=== PATIENT | male | born 2005 | race Caucasian/White ===

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

== ENCOUNTER 2023-09-10 15:12 | Emergency (ER) | payer MEDICAID, SELFPAY ==
[2023-09-10] VITALS (20 sets, daily range): BP systolic 82–153; BP diastolic 46–77; PULSE 50–70; RESP 16–18; TEMP 37.2; O2SAT 96–100
--- NOTE | 2023-09-10 15:08 | W.ED.GENAD ---
HPI General Mode of arrival: EMS. Date/Time Provider Initiated Documentation: 09/10/23 15:28. Limitations to Documentation: no limitations. Information obtained by: patient, family (father) and EMS. HPI Narrative: Time seen was on arrival in bed 4. The patient is a 18-year-old with history of opiate use disorder who never used IV drugs and who is currently on methadone. The patient does have a history of migraines. Today he presents with 4 hours of a headache. He said it came on very quickly but did not reach maximal intensity for 2 to 3 hours. The patient states that the headache is bitemporal and throbbing it is aggravated by light and feels different than his usual migraines. He has vomited 3 times and is complaining of several days of nausea but no abdominal pain. His father tells me that he has had his gallbladder out but that the patient has never had any abdominal surgeries. They called EMS and on arrival he was pale and shaking but was not febrile in the field. An IV was established and the patient received 4 mg of Zofran and 1 g of IV acetaminophen which helped his headache which went from an 8 at maximum to 2. The patient has not been using any opiates for 2 months and has not had any change in his methadone dose. He does tell me that he has had similar symptoms when he was withdrawing. Blood sugar in the field was within normal limits. The patient states that he thought he saw small amount of blood with his third and last episode of emesis. He denies any stiff neck or rashes. He has not had a subjective fever at home but did have chills. He denies any diarrhea. His last bowel movement was this morning and was normal. His last meal was an omelette which he had 2 hours before the onset of his symptoms. No other family members have been sick. He has not had any foreign travel or any ingested any unusual foods. He denies any rashes. He denies any numbness tingling or weakness. He denies any dysuria or penile discharge. The patient denies any blurry vision. He denies earache, sore throat, rhinorrhea, chest pain, shortness of breath, cough or sick contacts. No dysuria. Related Data Home Medications Medication Instructions Recorded Confirmed amoxicillin 875 mg-potassium 1 tab PO BID #14 tabs 09/26/21 clavulanate 125 mg tablet Previous Rx's Medication Instructions Recorded amoxicillin 875 mg-potassium 1 tab PO BID #14 tabs 09/26/21 clavulanate 125 mg tablet Allergies Allergy/AdvReac Type Severity Reaction Status Date / Time No Known Allergies Allergy Unverified 06/13/20 19:12 General Stated Complaint: Headache ALEXANDRA: 4 Review of Systems Narrative: see hpi Exam Const General: cooperative, healthy appearing, comfortable, no acute distress, well developed and well hydrated Nutritional Appearance: average body habitus and well nourished Orientation: alert, awake and oriented x3 HENMT Head: normal to inspection, normocephalic and atraumatic Ears: hearing grossly normal bilaterally, external ears normal and TM's normal bilaterally General nose exam: external nose normal, nares normal and no nasal discharge Face and sinus: normal facial exam, sinuses nontender and face symmetric Mouth: oral mucosae normal, lip normal, tongue normal, oropharynx normal and other (Normal phonation. The patient is handling secretions.) Throat: posterior oropharynx normal and uvula midline Eyes General: appearance normal, both eyes and all related structures Alignment and Position: alignment normal Periorbital: periorbital findings normal Eyelids: eyelids normal Conjunctivae: conjunctivae normal Sclera: sclerae normal Cornea: corneas normal Pupils: PERRL EOM: EOM intact bilaterally and No nystagmus Other: Discs are sharp. Extraocular muscles are intact. No significant photophobia Neck Neck: normal visual inspection, full ROM, no lymphadenopathy, no meningeal signs, trachea midline and supple Lymphatic: no lymphadenopathy noted Chest Chest: normal inspection of the chest Resp Effort & Inspection: normal respiratory effort, able to speak in complete sentences, no audible wheezes, no nasal flaring, no respiratory distress, no retractions, no stridor, not tachypneic, no tracheal deviation, no use of accessory muscles, No prolonged expiratory phase and other (Normal inspiratory to expiratory ratio.) Auscultation: clear to auscultation bilaterally, no rales, no rhonchi, no wheezes and no rubs Tactile Fremitus: tactile fremitus absent Cardio Jugular venous pressure: no JVD Palpation: normal PMI Rate: regular rate Rhythm: regular rhythm Heart Sounds: S1 normal, S2 normal, no gallops, no murmurs and no rubs GI Inspection: normal to inspection and non-distended Palpation: soft, no hepatosplenomegaly, no guarding and nontender Percussion: normal to percussion Auscultation: normal bowel sounds General: No CVA tenderness Back/Spine/Pelvis Back: no CVA tenderness and No back tenderness Cervical Spine: normal cervical lordosis, cervical ROM normal, No cervical muscular tenderness, No pain with cervical ROM, No cervical spinal tenderness and No step off deformity Thoracic/Lumbar Spine: thoracic and lumbar spine normal to inspection, No thoracic spinal tenderness and No lumbar spinal tenderness Pelvis: no pain with anterior-posterior compression and no pain with lateral compression Skin General skin exam: no rashes or lesions noted, turgor normal, no petechiae, no purpura and other (Skin is normal for ethnicity.) Lesions: no lesions Rashes: no rashes Trauma: no lacerations or abrasions Neuro General: patient alert, patient awake, patient oriented x3, moves all extremities, no meningeal signs, no focal motor deficits and CN's II-XI intact bilaterally Cranial Nerves: CN's II-XI intact bilaterally, PERRL, accommodation normal, EOM intact bilaterally, no nystagmus, facial strength normal, tongue midline, hearing normal and no nystagmus Cognition: normal cognition Speech: speech normal Gait: normal gait Motor: muscle tone normal throughout and strength 5/5 throughout Sensory Exam: no sensory deficits noted Extrem General: normal to inspection, full ROM, capillary refill normal, no clubbing, cyanosis or edema and no calf tenderness Psych Appearance: grossly normal Affect: normal affect Attitude: cooperative Thought Process: normal Thought Content: normal Insight: insight good Judgment: judgment good Other: The patient appears to have capacity make medical decisions. Course 5:09 PM I have reviewed the patient's lab work. He feels improved. He is keeping down p.o. I will discharge him home with outpatient follow-up. I have advised the patient of his elevated AST and his mild anemia. He did not tell me that he does occasionally have blood in his stool. I have advised him to return if he develops any black stools bloody stools or vomits any more blood. I have told him to avoid alcohol and acetaminophen. We will arrange to have primary care follow-up with him as well as general surgery for repeat liver function and possible endoscopy. I do not think he has an ulcer since he is not having abdominal pain. I will discharge him with p.o. Zofran and advised him to take [id number] Pepcid. The patient voiced understanding agreement with the discharge plan. All his questions and concerns were addressed prior to discharge Medical Decision Making Patient is a 18-year-old who presents with headache and nausea and vomiting but no significant abdominal pain. The patient does have a history of opiate use disorder but has never used IV drugs because she is afraid of needles. He tells me he noted a small amount of blood in his emesis but appears hemodynamically stable and has not had any significant hematemesis. My plan is to obtain IV access and give him IV fluids because he appears dehydrated. We will give him antiemetics as needed. I do not see any indication for CT imaging of his brain or abdomen since he has a normal neurologic exam, and has no signs of meningitis or encephalitis, and no abdominal pain just nausea. The patient certainly could have a viral infection and we will check him for flu COVID and RSV. Symptoms could be secondary to withdrawal from opiates and I will check a urine drug screen and urinalysis to determine his level of dehydration. I do not think that she has an ulcer and probably just sustained mild trauma from retching. I will check CBC for anemia and leukocytosis as well as thrombocytopenia. I will check his electrolytes for evidence of dehydration and renal function. I will check his liver function test for evidence of hepatitis and a lipase for pancreatitis. We will monitor him in the department and I will rehydrate him with IV fluids. If he remains stable I will likely discharge him home. If he develops abdominal pain I will consider imaging. Differential Diagnosis Differential Diagnosis: viral uri,gastroenteritis, dehydration, opiate withdrawal Medical Records Medical records reviewed: Yes I reviewed the patient's medical records. Lab Data Lab results reviewed: Yes I reviewed the patient's lab results. Quality:SDOH Health Related Social Needs: Health related social needs details the patient has a h/o OUD Health related social needs details: the patient has a h/o OUD [facility] All Active Problems (Updated 09/10/23 @ 17:24 by Ursula Briceno MD) Headache (Acute) Mild nausea and vomiting (Acute) Hematemesis of unknown cause (Acute) Medical History No significant past medical history Surgical History No significant past surgical history Social History Smoking/Tobacco Use Status: Current every day Smoking risk assessment performed?: Yes Alcohol Intake: current Alcohol Intake frequency: a few times a month Drug use: Occasionally Substance use type: marijuana Housing: apartment Do you feel safe at home: Yes Do you feel safe in your relationship?: Yes Discharge Plan Disposition Patient Disposition: Home Discharge Details Clinical Impression: Hematemesis of unknown cause, Mild nausea and vomiting, Headache Primary Care Provider: Paul Minor ED Provider: Ursula Briceno Home Meds and New Rx's Prescriptions: No Action amoxicillin-pot clavulanate 875-125 mg tablet 1 tab PO BID Qty: 14 0RF Discharge Instructions Instructions: Gastrointestinal Bleeding (ED), Acute Nausea and Vomiting (ED), Anemia (ED), General Headache (ED), Hematemesis (ED) Additional Instructions: 1. You will be contacted by a primary care provider as well as general surgery. You should have your anemia and liver function test rechecked. General surgery will contact you for possible upper or lower endoscopy. 2. Avoid alcohol and acetaminophen. You may take acetaminophen for pain which does not cause internal bleeding, but you should start with you may take low-dose ibuprofen as needed for pain, because this does not affect your liver.. Do not take more than 600 mg at a time and if you develop abdominal pain you should stop ibuprofen. 3. Return here if you develop any new or worrisome symptoms including stiff neck high fever dizziness or large amounts of blood in the stool or vomit. 4. [id number] Pepcid and take as directed until you follow-up with primary care and general surgery. 5. Return here for any new or worrisome symptoms. 6. Take Zofran as needed for nausea and vomiting. We recommend that you drink electrolyte solution such as Pedialyte and or Gatorade as needed to avoid dehydration. Discharge Data Discharge Date/Time-TO BE ENTERED AT DEPARTURE: 09/10/23 17:29 Discharge Physician: Ursula Briceno
[2023-09-10] MEDS: Normal Saline 1,000 ML 1000 ML IV (15:42)
[2023-09-10 15:47] LABS: Abs Immature Grans 0.02 10^3/uL (0.0-0.06); Absolute Basophil Count 0.04 10^3/uL (0.0-0.2); Absolute Eosinophil Count 0.27 10^3/uL (0.0-0.7); Absolute Lymphocyte Count 2.27 10^3/uL (1.2-3.4); Absolute Monocyte Count 0.52 10^3/uL (0.1-0.8); Absolute Neutrophil Count 5.52 10^3/uL (1.2-6.7); Basophils % 0.5; Eosinophils % 3.1; HCT 35.5 % (40.0-50.0); HGB 12.4 g/dL (13.5-17.5); Immature Grans % 0.2; Lymphocytes % 26.3; MCHC 34.9 % (32.0-36.0); MCV 83 fL (80-95); MPV 9.3 fL (8.0-11.0); Neutrophils % 63.9; Platelet Count 231 10^3/uL (130-400); RBC 4.28 10^6/uL (4.36-5.78); RDW 12.8 % (11.8-14.1); RDW-SD 38.8 fL; WBC 8.64 10^3/uL (4.4-10.8)
[2023-09-10 15:59] LABS: Lipase 66 U/L (16-77)
[2023-09-10 16:03] LABS: ALT 63 U/L (16-63); AST 45 U/L (15-37); Albumin 3.7 g/dL (3.4-5.0); Alkaline Phosphatase 76 U/L (46-116); Anion Gap 5.4 mmol/L (3-11); BUN 13 mg/dL (7-18); Bilirubin, Total 0.4 mg/dL (0.2-1.0); CO2 32.6 mmol/L (21.0-32.0); CREATININE 0.9 mg/dL (0.70-1.30); Calcium 9.6 mg/dL (8.5-10.1); Chloride 104 mmol/L (98-107); Estimated GFR 125.39 (mL/min/1.73m2); Glucose 89 mg/dL (74-106); Potassium 3.7 mmol/L (3.5-5.1); Sodium 142 mmol/L (136-145); Total Protein 6.9 g/dL (6.4-8.2)
[2023-09-10 16:15] LABS: Bilirubin Negative (Negative); Blood Negative (Negative); Clarity Turbid (Clear); Glucose Negative (Negative); Ketones Negative (Negative); Leukocyte Esterase Negative (Negative); Nitrite Negative (Negative); Urobilinogen 0.2 mg/dL (Up to 0.2)
[2023-09-10 16:24] LABS: COVID-19 PCR Negative (Negative); Influenza A PCR Negative (Negative); Influenza B PCR Negative (Negative); RSV PCR Negative (Negative)
[2023-09-10 16:26] LABS: Source Nasopharynx
[2023-09-10 16:35] LABS: Procalcitonin < 0.1 ng/mL
[2023-09-10 16:42] LABS: *AMPHETAMINES SCREEN URINE Negative (Negative); *BARBITURATES SCREEN URINE Negative (Negative); *BENZODIAZEPINES SCREEN URINE Negative (Negative); Cannabinoids THC Positive (Negative); Cocaine Screen,Urine Negative (Negative); METHADONE URINE SCREEN Positive (Negative); OPIATES URINE SCREEN Negative (Negative)
[2023-09-10 16:44] LABS: Tricyclic Antidepressants Negative (Negative)
--- NOTE | 2023-09-10 17:14 | NUR.NOTE ---
Referral given to Care Management to PCP for elevation of AST within 2 weeks. [facility] in stool, for first available appt. Nursing Note:
== END 2023-09-10 17:29 | disposition home or self-care (01) ==
PROVIDERS: Emergency Provider Emergency Medicine Emergency Medical Services; PCP Family Medicine
DX: R51.9 Headache, unspecified (principal); R11.2 Nausea with vomiting, unspecified; K92.0 Hematemesis; R74.01 Elevation of levels of liver transaminase levels; D64.9 Anemia, unspecified; F11.20 Opioid dependence, uncomplicated
CPT/HCPCS: 80053; 80307; 83690; 84145; 87637; 96360; 99283; 81003; 83605; 85025

== ENCOUNTER 2023-12-17 11:22 | Emergency (ER) | payer MEDICAID, SELFPAY ==
[2023-12-17 11:25] VITALS: BP 157/93; PULSE 110; RESP 20; TEMP 36.6; O2SAT 96
[2023-12-17 11:28] VITALS: BP 157/93; PULSE 110; RESP 20; TEMP 36.6; O2SAT 96
--- NOTE | 2023-12-17 11:51 | ED.GENADUL_ITS ---
Discharge Plan Disposition Patient Disposition: Home Condition: Stable Discharge Details Clinical Impression: Vomiting, Hypomagnesemia Primary Care Provider: Paul Minor ED Provider: Isma Brown Home Meds and New Rx's Prescriptions: New ondansetron 4 mg tablet,disintegrating 4 mg PO Q8H PRN (Reason: nausea and vomiting) Qty: 30 0RF No Action amoxicillin-pot clavulanate 875-125 mg tablet 1 tab PO BID Qty: 14 0RF Discharge Instructions Instructions: Acute Nausea and Vomiting (ED) Additional Instructions: Drink clear liquids and advance diet slowly as tolerated. Take Zofran as needed for nausea. Follow-up with your PCP for further evaluation if you have persistent vomiting. Return to the emergency department with severe pain or not tolerating anything by mouth. Discharge Data Discharge Date/Time-TO BE ENTERED AT DEPARTURE: 12/17/23 14:29 HPI General Date/Time Provider Initiated Documentation: 12/17/23 11:30 . Limitations to Documentation: no limitations . Information obtained by: patient . HPI Narrative: 18-year-old gentleman without significant past medical history presents for ev aluation of vomiting. He reports that for the last 3 days he has been vomiting. Has some mild epigastric abdominal tenderness, denies any diarrhea. Denies any fever. Reports that he is able to eat but then will have vomiting later. he got some [employer] on the way to the hospital but he threw up after eating it. Related Data Home Medications Medication Instructions Recorded Confirmed amoxicillin 875 mg-potassium 1 tab PO BID #14 tabs 09/26/21 clavulanate 125 mg tablet ondansetron 4 mg disintegrating 4 mg PO Q8H PRN nausea and 12/17/23 tablet vomiting #30 tabs Previous Rx's Medication Instructions Recorded amoxicillin 875 mg-potassium 1 tab PO BID #14 tabs 09/26/21 clavulanate 125 mg tablet ondansetron 4 mg disintegrating 4 mg PO Q8H PRN nausea and 12/17/23 tablet vomiting #30 tabs Allergies Allergy/AdvReac Type Severity Reaction Status Date / Time No Known Allergies Allergy Unverified 06/13/20 19:12 General Stated Complaint: Abd Prob ALEXANDRA: 3 Exam Narrative Exam Narrative: Review of Systems: All systems reviewed & are unremarkable except as noted in HPI and below Well-developed, no acute distress NCAT PERRL, normal conjunctiva Dry mucous membranes RRR, no murmur Unlabored respiratory effort, clear bilaterally Nondistended abdomen , soft, non tender, no focal tenderness Extremities w/o deformity, no cyanosis, no edema No rashes or lesions. no focal neurologic deficits Appropriate mood and affect dry mucous membranes Course Vital Signs Vital signs: Vital Signs Temperature 36.6 C 12/17/23 11:25 Pulse 110 H 12/17/23 11:25 Respiratory Rate 20 12/17/23 11:25 Blood Pressure 157/93 H 12/17/23 11:25 Pulse Oximetry 96 12/17/23 11:25 Temperature 36.6 C 12/17/23 11:28 Temperature Source Tympanic 12/17/23 11:28 Pulse 110 H 12/17/23 11:28 Respiratory Rate 20 12/17/23 11:28 Respiratory Effort Normal, Non-Labored 12/17/23 11:28 Blood Pressure 157/93 H 12/17/23 11:28 Blood Pressure Position Sitting 12/17/23 11:28 Pulse Oximetry 96 12/17/23 11:28 Oxygen Delivery Method Room Air 12/17/23 11:28 Oxygen Flow Rate 0 12/17/23 11:28 Pain Level 5 12/17/23 11:28 Medical Decision Making Emergent evaluation of vomiting. Initial differential includes viral illness, dehydration, pancreatitis. Cyclic vomiting. No abdominal tenderness on exam, so I have a low suspicion for an acute intra-abdominal etiology. Plan for labs, fluid resuscitation and Zofran. Will reassess. Lab work reviewed. Mild hypomagnesemia. IV replacement ordered. No other significant signs of dehydration or electrolyte derangement. After fluid resuscitation, the patient is tolerating p.o. Was provided a few doses of Zofran at discharge and a prescription was also sent to the pharmacy. Return precautions advised. Medical Records Medical records reviewed: Yes I reviewed the patient's medical records. Lab Data Lab results reviewed: Yes I reviewed the patient's lab results. Quality:SDOH Health Related Social Needs: Health related social needs details the patient has a h/o OUD PFSH All Active Problems (Updated 12/17/23 @ 13:03 by Isma Brown MD) Hypomagnesemia (Acute) Vomiting (Acute) Medical History No significant past medical history Surgical History No significant past surgical history Social History Smoking/Tobacco Use Status: Current every day Smoking risk assessment performed?: Yes Alcohol Intake: current Alcohol Intake frequency: a few times a month Drug use: Occasionally Substance use type: marijuana Housing: apartment Do you feel safe at home: Yes Do you feel safe in your relationship?: Yes
[2023-12-17] MEDS: Normal Saline 1,000 ML 1000 ML IV (11:55)
[2023-12-17] MEDS: Ondansetron 4 MG/2 ML VIAL IVP (11:56)
[2023-12-17 11:57] LABS: Abs Immature Grans 0.03 10^3/uL (0.0-0.06); Absolute Basophil Count 0.02 10^3/uL (0.0-0.2); Absolute Eosinophil Count 0.01 10^3/uL (0.0-0.7); Absolute Lymphocyte Count 1.57 10^3/uL (1.2-3.4); Absolute Neutrophil Count 5.86 10^3/uL (1.2-6.7); Basophils % 0.3; Eosinophils % 0.1; HCT 38.5 % (40.0-50.0); HGB 13.4 g/dL (13.5-17.5); Immature Grans % 0.4; Lymphocytes % 20.2; MCH 29.5 pg (27.0-33.0); MCHC 34.8 % (32.0-36.0); MCV 85 fL (80-95); MPV 8.7 fL (8.0-11.0); Monocytes % 3.9; Neutrophils % 75.1; Platelet Count 274 10^3/uL (130-400); RBC 4.54 10^6/uL (4.36-5.78); RDW-SD 36.9 fL; WBC 7.79 10^3/uL (4.4-10.8)
[2023-12-17 12:12] LABS: ALT 41 U/L (16-63); AST 31 U/L (15-37); Albumin 4.1 g/dL (3.4-5.0); Alkaline Phosphatase 113 U/L (46-116); Anion Gap 8.9 mmol/L (3-11); BUN 13 mg/dL (7-18); Bilirubin, Total 0.4 mg/dL (0.2-1.0); CO2 29.1 mmol/L (21.0-32.0); CREATININE 0.9 mg/dL (0.70-1.30); Calcium 9.2 mg/dL (8.5-10.1); Chloride 102 mmol/L (98-107); Estimated GFR 125.39 (mL/min/1.73m2); Glucose 101 mg/dL (74-106); Lipase 18 U/L (16-77); Magnesium 1.7 mg/dL (1.8-2.4); Sodium 140 mmol/L (136-145); Total Protein 7.6 g/dL (6.4-8.2)
[2023-12-17] MEDS: MAGNESIUM SULFATE 2 GM/50 ML BAG IVINF (13:01)
[2023-12-17 14:25] VITALS: BP 153/73; PULSE 60; RESP 18; O2SAT 96
[2023-12-17] MEDS: Ondansetron O.D.T. 4 MG TABEF, 3 TABS/BTL PO (14:28)
== END 2023-12-17 14:29 | disposition home or self-care (01) ==
PROVIDERS: Emergency Provider Emergency Medicine; PCP Family Medicine
DX: R11.2 Nausea with vomiting, unspecified (principal); E83.42 Hypomagnesemia; F17.210 Nicotine dependence, cigarettes, uncomplicated
CPT/HCPCS: 80053; 83690; 96361; 96365; 96375; 99284; 83735; 85025; J2405; J3475

== ENCOUNTER 2024-02-07 15:56 | Emergency (ER) | payer MEDICAID, SELFPAY ==
[2024-02-07 16:10] VITALS: BP 137/64; PULSE 87; RESP 10; TEMP 36.2; O2SAT 97
--- NOTE | 2024-02-07 16:41 | ED.GENADUL_ITS ---
Discharge Plan Disposition Patient Disposition: Home Condition: Stable Discharge Details Clinical Impression: Animal bite of left hand Primary Care Provider: Paul Minor ED Provider: Daysi Lira Home Meds and New Rx's Prescriptions: New amoxicillin-pot clavulanate 875-125 mg tablet 1 tab PO BID 10 Days Qty: 20 0RF No Action methadone [Methadose] 10 mg/mL concentrate 60 mg PO DAILY Discharge Instructions Instructions: Rabies Immune Globulin (Human), Animal Bites ED, Rabies Vaccine CDC Vaccine Information Statement (VIS) Additional Instructions: Please return as instructed on the rabies vaccination sheet. Please keep clean and dry, return sooner for any signs of infection including increased redness streaks drainage or swelling. Please take the antibiotic twice daily with yogurt or a probiotic as prescribed. Follow up with primary care provider in 3-5 days. Return to ED sooner if any worsening or concerns. Referrals: Paul Minor [Primary Care Provider] - 2 days HPI General Mode of arrival: ambulatory . Date/Time Provider Initiated Documentation: 02/07/24 16:14 . Limitations to Documentation: no limitations . Information obtained by: patient, RN notes reviewed and old records reviewed . HPI Narrative: 18-year-old male presents to the ER with a groundhog bite to his left thumb which occurred prior to arrival. Patient reports that the groundhog was not acting like normal groundhog and was slow and sickly looking and he tried to give it a cracker and the groundhog bit him. His last tetanus vaccination was in 2015, he does have a small puncture wound noted to the lateral aspect of his left thumb, bleeding is controlled upon arrival he does have full range of motion distal CMS is intact. No other drug allergies, no significant past medical history, he does take methadone daily. Related Data Home Medications Medication Instructions Recorded Confirmed amoxicillin 875 mg-potassium 1 tab PO BID 10 days #20 tabs 02/07/24 clavulanate 125 mg tablet methadone 10 mg/mL oral 60 mg PO DAILY 02/07/24 02/07/24 concentrate (Methadose) Previous Rx's Medication Instructions Recorded amoxicillin 875 mg-potassium 1 tab PO BID 10 days #20 tabs 02/07/24 clavulanate 125 mg tablet Allergies Allergy/AdvReac Type Severity Reaction Status Date / Time No Known Allergies Allergy Unverified 02/07/24 16:13 General Stated Complaint: AnimalBite ALEXANDRA: 4 Review of Systems All systems reviewed & are unremarkable except as noted in HPI and below ENT Ears, Nose, Mouth, and Throat: Reports system reviewed and no additional complaints, except as documented Gastrointestinal Gastrointestinal: Reports system reviewed and no additional complaints, except as documented Musculoskeletal Musculoskeletal: Reports as per HPI Integumentary/Breasts Skin/Breast: Reports as per HPI and Reports wounds Exam Extrem General: normal to inspection Left upper extremity: hand Details: normal capillary refill, neuromotor exam normal, neurosensory exam normal, normal ROM of fingers, no swelling and puncture wound (Left thumb bite wound); no unusual warmth, no crepitus and no foreign bodies Hand/finger images: 2 1. Approximately 1 cm irregular puncture laceration, bleeding controlled, full range of motion noted distal CMS intact, no visualized foreign body. Course Vital Signs Vital signs: Vital Signs Temperature 36.2 C L 02/07/24 16:10 Pulse 87 02/07/24 16:10 Respiratory Rate 10 L 02/07/24 16:10 Blood Pressure 137/64 02/07/24 16:10 Pulse Oximetry 97 02/07/24 16:10 Temperature 36.2 C L 02/07/24 16:10 Temperature Source Temporal Artery Scan 02/07/24 16:10 Pulse 87 02/07/24 16:10 Respiratory Rate 10 L 02/07/24 16:10 Respiratory Effort Normal, Non-Labored 02/07/24 16:16 Blood Pressure 137/64 02/07/24 16:10 Blood Pressure Position Sitting 02/07/24 16:10 Pulse Oximetry 97 02/07/24 16:10 Oxygen Delivery Method Room Air 02/07/24 16:10 Oxygen Flow Rate 0 02/07/24 16:10 Pain Level 2 02/07/24 16:10 Medical Decision Making 18-year-old male presents to the ER with a groundhog bite to his left thumb which occurred prior to arrival. Patient reports that the groundhog was not acting like normal groundhog and was slow and sickly looking and he tried to give it a cracker and the groundhog bit him. His last tetanus vaccination was in 2015, he does have a small puncture wound noted to the lateral aspect of his left thumb, bleeding is controlled upon arrival he does have full range of motion distal CMS is intact. No other drug allergies, no significant past medical history, he does take methadone daily. Due to nature of injury will order rabies prophylaxis and rabies vaccination, will give a tetanus booster as his last tetanus was greater than 5 years ago, will order rabies vaccination on day 3 7 and 14. Also will give Augmentin to treat empirically for bite wound infection. Discussed plan of care with patient he verbalized understanding and is in agreement with the plan. Rabies immunoglobulin infiltrated into the left thumb by ER staff primary RN and myself with some difficulty, approximately 1ml infiltrated into the thumb near the wound. Patient tolerated with some difficulty. The remainder of the IM medication was injected into his left upper deltoid by me. Augmentin twice daily for the next 10 days was sent to the pharmacy on file. Patient was given instructions and strict return instructions to watch for infection and follow-up care. This text was generated using [employer] dictation system, please disregard any oddities of phrase or misspellings. Quality:SDOH Health Related Social Needs: 2 Health related social needs details the patient has a h/o OUD PFSH All Active Problems (Updated 02/07/24 @ 17:48 by Daysi Lira NP) Animal bite of left hand (Acute) Medical History No significant past medical history Surgical History No significant past surgical history Social History Smoking/Tobacco Use Status: Current every day Smoking risk assessment performed?: Yes Alcohol Intake: current Alcohol Intake frequency: a few times a month Drug use: Occasionally Substance use type: marijuana Housing: apartment Do you feel safe at home: Yes Do you feel safe in your relationship?: Yes
[2024-02-07] MEDS: Amoxicillin 875/Clav. 125 TAB PO (16:57)
--- NOTE | 2024-02-07 17:04 | NUR.NOTE ---
Faxed animal bite report form to health officer Salbador Ross of [facility] and left a message on his cell phone that it was faxed. Faxed the Rabies Vaccination orders to Infusion room for follow up. 02/10/24 day 3 02/14/24 day 7 02/21/24 day 14 Copy of rabies vaccination orders given to patient. Nursing Note:
[2024-02-07] MEDS: Rabies vaccine (PCEC)/PF 2.5 UNITS/ML VIAL IM (17:27)
[2024-02-07] MEDS: Rabies Immune Globulin 1,500 UNIT/5 ML VIAL 1678.3 UNITS IM (17:31)
== END 2024-02-07 17:51 | disposition home or self-care (01) ==
PROVIDERS: Emergency Provider Registered Nurse Emergency; PCP Family Medicine
DX: S60.372A Other superficial bite of left thumb, initial encounter (principal); Z23 Encounter for immunization; W53.81XA Bitten by other rodent, initial encounter; F17.210 Nicotine dependence, cigarettes, uncomplicated; Y93.K3 Activity, grooming and shearing an animal
CPT/HCPCS: 90375; 90471; 90472; 90715; 96372; 99284; 90675; 99283